=== PATIENT | female | born 2000 | race Caucasian/White ===

== ENCOUNTER 2018-12-09 20:13 | Observation (INO) | payer MEDICAID ==
[~2018-12-09] VITALS: Ht 167.6 cm; Wt 66.2 kg
[2018-12-09] MEDS ORDERED: CEFAZOLIN SODIUM 1000MG/VIAL IV ONE (21:30)
[2018-12-09] MEDS ORDERED: LACTATED RINGERS 1,000 ML IV ONE (21:30)
[2018-12-09] MEDS ORDERED: CEFAZOLIN 2000MG in DEXTROSE 5% WATER 100ML IV SCH (22:00)
[2018-12-09] MEDS ORDERED: PNV1TABL50 PO (22:02)
== END 2018-12-09 23:15 | disposition home or self-care (01) ==
LOC: 8 EST LDRP 20:59
PROVIDERS: ADMIT Obstetrics & Gynecology; ATTEND Obstetrics & Gynecology
DX: O26.893 Other specified pregnancy related conditions, third trimester (principal); R10.30 Lower abdominal pain, unspecified; Z3A.38 38 weeks gestation of pregnancy
CPT/HCPCS: 96365; 99281; G0378; J0690; J7060; 94640; 96360; 96361

== ENCOUNTER 2018-12-21 21:32 | Observation (INO) | payer MEDICAID ==
[~2018-12-21] VITALS: Ht 167.6 cm; Wt 69.9 kg
[~2018-12-21 21:32] MED LIST: PNV1TABL50 PO
== END 2018-12-21 23:30 | disposition home or self-care (01) ==
LOC: 8 EST LDRP 21:32
PROVIDERS: ADMIT Obstetrics & Gynecology; ATTEND Obstetrics & Gynecology
DX: O48.0 Post-term pregnancy (principal); Z3A.41 41 weeks gestation of pregnancy
CPT/HCPCS: G0378 ×2; 99281

== ENCOUNTER 2018-12-23 18:53 | Inpatient (IN) | payer MEDICAID ==
[~2018-12-23] VITALS: Ht 165.1 cm; Wt 68.5 kg
[2018-12-23] MEDS ORDERED: LACTATED RINGERS 1,000 ML IV SCH (21:25)
[2018-12-23] MEDS ORDERED: MISOPROSTOL 100MCG TABLET VG SCH (21:30)
[2018-12-23] MEDS ORDERED: CARBOPROST TROMETHAMINE 250 MCG/ML AMPUL IM PRN (21:30)
[2018-12-23] MEDS ORDERED: NALOXONE HCL 0.4 MG/ML 1ML VIAL IM PRN (21:30)
[2018-12-23] MEDS ORDERED: LIDOCAINE HCL 1% 20ML VIAL (Pyxis) INJ INFIL SCH (21:30)
[2018-12-23] MEDS ORDERED: METHYLERGONOVINE MALEATE 0.2 MG/ML IM PRN (21:30)
[2018-12-23] MEDS ORDERED: PENICILLIN G POTASSIUM 5 MMU in DEXT 5% WATER 100 ML IV SCH (22:00)
[2018-12-23 22:24] LABS: BASOPHILS % 0.2 % (0.0-2.0); EOSINOPHILS % 1.4 % (0.0-5.0); HEMATOCRIT. 36.4 % (36.0-48.0); HEMOGLOBIN. 12.7 g/dL (12.0-16.0); LYMPHOCYTES % 24.3 % (20.0-50.0); MEAN CORPUSCULAR HEMOGLOBIN 30.4 pg (28.0-32.0); MEAN CORPUSCULAR VOLUME 86.8 fL (81.0-99.0); MEAN PLATELET VOLUME 7.8 fl (7.4-10.4); MONOCYTES % 8.1 % (2.0-8.0); PLATELET 230 x1000/uL (130-400); RED BLOOD CELL COUNT 4.19 mill/uL (4.2-5.4); RED CELL DISTRIBUTION WIDTH 13.6 % (11.6-14.6)
[2018-12-23 22:32] LABS: INR 0.9; PROTHROMBIN TIME 9.6 sec (9.6-11.0)
[2018-12-23 22:35] LABS: CHLORIDE 111 mEq/L (98-107)
[2018-12-23 23:02] LABS: HEPATITIS B SURFACE ANTIGEN NEGATIVE
[2018-12-24] MEDS: DEXT 5%/LR + PITOCIN 20UNITS/L 1,000 ML IV SCH ×2 (02:11→11:22)
[2018-12-24] MEDS: BUTORPHANOL TARTRATE 2 MG/ML VIAL IV PRN ×3 (04:18→09:50)
[2018-12-24] MEDS: PENICILLIN G POTASSIUM 2.5 MMU in DEXTROSE 5% WATER 50 ML IV SCH ×2 (06:00→09:47)
[2018-12-24] MEDS ORDERED: MINERAL OIL 30ML BOTTLE PO NR (10:12)
[2018-12-24] MEDS ORDERED: DEXT 5%/LR + PITOCIN 20UNITS/L 1,000 ML IV SCH (11:25)
[2018-12-24] MEDS ORDERED: LANOLIN OINT 7GM TUBE TOP PRN (11:30)
[2018-12-24] MEDS ORDERED: BISACODYL 10MG SUPP PR PRN (11:30)
[2018-12-24] MEDS ORDERED: ACETAMINOPHEN WITH CODEINE 300/30MG TABLET PO PRN ×2 (11:30)
[2018-12-24] MEDS ORDERED: HEMORRHOIDAL SUPP PR PRN (11:30)
[2018-12-24] MEDS ORDERED: BENZOCAINE/LANOLIN/ALOE VERA SPRAY TOP PRN (11:30)
[2018-12-24] MEDS ORDERED: GLYCERIN/WITCH HAZEL LEAF MEDICATED PAD TOP PRN (11:30)
[2018-12-24 13:00] VITALS: BP 108/68
[2018-12-24] MEDS: SIMETHICONE 80MG TABLET CHEW PO SCH ×2 (13:00→18:00)
[2018-12-24] MEDS: MAGNESIUM/ALUMINUM HYDROXIDE/SIMETHICONE 30ML UDC PO SCH ×2 (13:00→17:30)
[2018-12-24 13:30] VITALS: BP 108/78
[2018-12-24 15:00] VITALS: BP 115/79
[2018-12-24 20:00] VITALS: BP 112/67
[2018-12-24] MEDS: DOCUSATE SODIUM 100MG CAPSULE PO SCH (20:58)
[2018-12-24 21:45] LABS: CLARITY URINE CLOUDY (CLEAR); COLOR URINE RED (YELLOW); KETONES URINE NEGATIVE (NEGATIVE); LEUKOCYTE ESTERASE URINE 1+ (NEGATIVE); NITRITE URINE NEGATIVE (NEGATIVE); OCCULT BLOOD URINE 3+ (NEGATIVE); PROTEIN URINE 2+ (NEGATIVE); SPECIFIC GRAVITY URINE 1.009 (1.005-1.030); UROBILINOGEN URINE 0.2 E.U./dL (0.2-1.0)
[2018-12-24 22:07] LABS: *AMPHETAMINES SCREEN URINE NEGATIVE (NEGATIVE); *BARBITURATES SCREEN URINE NEGATIVE (NEGATIVE); *BENZODIAZEPINES SCREEN URINE NEGATIVE (NEGATIVE); *COCAINE SCREEN URINE NEGATIVE (NEGATIVE); METHADONE URINE SCREEN NEGATIVE (NEGATIVE)
[2018-12-24 22:08] LABS: CANNABINOID URINE SCREEN NEGATIVE (NEGATIVE); PHENCYCLIDINE URINE SCREEN NEGATIVE (NEGATIVE)
[2018-12-24 22:23] LABS: OPIATES URINE SCREEN PRESUMTIVE POSITIVE (NEGATIVE)
[2018-12-25] VITALS: BP 106/72
[2018-12-25 02:00] VITALS: BP 112/78
[2018-12-25 05:00] VITALS: BP 98/57
[2018-12-25 07:18] LABS: BASOPHILS % 0.2 % (0.0-2.0); EOSINOPHILS % 0.6 % (0.0-5.0); HEMOGLOBIN. 9.6 g/dL (12.0-16.0); LYMPHOCYTES % 22.9 % (20.0-50.0); MEAN CORPUSCULAR HEMOGLOBIN 29.8 pg (28.0-32.0); MEAN CORPUSCULAR VOLUME 86.9 fL (81.0-99.0); MEAN PLATELET VOLUME 7.2 fl (7.4-10.4); MONOCYTES % 6.5 % (2.0-8.0); NEUTROPHILS % 69.8 % (40.0-76.0); PLATELET 187 x1000/uL (130-400); RED BLOOD CELL COUNT 3.22 mill/uL (4.2-5.4); RED CELL DISTRIBUTION WIDTH 13.7 % (11.6-14.6)
[2018-12-25 07:45] VITALS: BP 98/53
[2018-12-25] MEDS: PRENATAL VIT/FE FUMARATE/FA TABLET PO SCH (09:09)
[2018-12-25] MEDS: IBUPROFEN 400MG TABLET PO PRN ×2 (09:10→14:04)
[2018-12-25] MEDS: FERROUS SULFATE 325MG TABLET PO SCH (09:10)
[2018-12-25 13:45] VITALS: BP 106/62
[2018-12-25 20:10] VITALS: BP 115/71
[2018-12-25] MEDS: MAGNESIUM/ALUMINUM HYDROXIDE/SIMETHICONE 30ML UDC PO SCH (21:53)
[2018-12-25] MEDS: SIMETHICONE 80MG TABLET CHEW PO SCH (21:53)
[2018-12-25] MEDS: DOCUSATE SODIUM 100MG CAPSULE PO SCH (21:54)
[2018-12-26 04:15] VITALS: BP 106/64
[2018-12-26 08:10] VITALS: BP 102/60
[2018-12-26] MEDS: PRENATAL VIT/FE FUMARATE/FA TABLET PO SCH (09:46)
[2018-12-26] MEDS: FERROUS SULFATE 325MG TABLET PO SCH (09:46)
[2018-12-31 04:16] LABS: OPIATES CONFIRMATION URINE Positive (.)
== END 2018-12-26 13:09 | disposition home or self-care (01) | DRG 560 ==
LOC: 8 EST LDRP 18:53 → OBSVTOIN 18:53 → 8EST 12-24 13:00
PROVIDERS: ADMIT Obstetrics & Gynecology; ATTEND Obstetrics & Gynecology
PROC: 10E0XZZ Delivery of Products of Conception, External Approach (ICD-10-PCS; principal; 2018-12-24)
DX: O48.0 Post-term pregnancy (principal); D64.9 Anemia, unspecified; Z37.0 Single live birth; O69.81X0 Labor and delivery complicated by cord around neck, without compression, not applicable or unspecified; O77.0 Labor and delivery complicated by meconium in amniotic fluid; O99.02 Anemia complicating childbirth; Z3A.41 41 weeks gestation of pregnancy
CPT/HCPCS: 36415; 76815; 76818; 80305; 80361; 86703; 86762; 86850; 86900; 87340; 99281; G0378; J0595; J2310; J2540; J2590; J3490; J7060